=== PATIENT | female | born 1970 | race Caucasian/White ===

== ENCOUNTER 2023-12-07 04:40 | Day surgery (SDC) | payer BC ==
[2023-12-06 10:07] VITALS: BMI 29.5
[2023-12-07 08:52] VITALS: TEMP 98.6
[2023-12-07 10:34] VITALS: BP 109/58; PULSE 70; RESP 16
[2023-12-07 11:31] LABS: POTASSIUM 3.9 mmol/L (3.5-5.1)
[2023-12-07 11:33] LABS: BLOOD UREA NITROGEN 14.6 mg/dL (7-18); CALCIUM 9.4 mg/dL (8.5-10.1)
[2023-12-07 11:37] LABS: CREATININE 0.9 mg/dL (0.55-1.3)
== END 2023-12-07 11:03 | disposition home or self-care (01) ==
LOC: JASU-ENDO 04:40
PROVIDERS: ATTEND Internal Medicine Gastroenterology
PROC: 0DBP8ZX Excision of Rectum, Via Natural or Artificial Opening Endoscopic, Diagnostic (ICD-10-PCS; principal; 2023-12-07 09:45)
DX: Z12.11 Encounter for screening for malignant neoplasm of colon (principal); K62.89 Other specified diseases of anus and rectum
CPT/HCPCS: 36415; 80048; 81025; 88305-TC